=== PATIENT | female | born 1950 | race Caucasian/White ===

== ENCOUNTER 2018-01-02 16:25 | Inpatient (IN) | payer MEDICARE, BC ==
[2018-01-02] VITALS (15 sets, daily range): BP systolic 123–196; BP diastolic 59–135; PULSE 80–101; RESP 16–36; TEMP 98.6; O2SAT 95–100
[2018-01-02 16:41] LABS: AUTOMATED NEUTROPHIL # 10.3 TH/MM3 (1.8-7.7); BASOPHIL # 0.1 TH/MM3 (0-0.2); BASOPHIL % 0.5 % (0.0-2.0); EOSINOPHIL # 0.2 TH/MM3 (0-0.4); EOSINOPHIL % 1.5 % (0.0-4.0); HEMATOCRIT 42.2 % (35.0-46.0); HEMOGLOBIN 14.8 GM/DL (11.6-15.3); LYMPH % 10.9 % (9.0-44.0); LYMPHOCYTE # 1.4 TH/MM3 (1.0-4.8); MEAN CELL VOLUME 83.7 FL (80.0-100.0); MEAN CORPUSCULAR HEMOGLOBIN 29.3 PG (27.0-34.0); MEAN PLATELET VOLUME 8.8 FL (7.0-11.0); MONO % 4.8 % (0.0-8.0); MONOCYTE # 0.6 TH/MM3 (0-0.9); NEUT % 82.3 % (16.0-70.0); PLATELET COUNT 298 TH/MM3 (150-450); RED BLOOD COUNT 5.04 MIL/MM3 (4.00-5.30); RED CELL DISTRIBUTION WIDTH 13.5 % (11.6-17.2); WHITE BLOOD COUNT 12.6 TH/MM3 (4.0-11.0)
--- NOTE | 2018-01-02 16:42 | RADRPT ---
EXAM DATE: 01/02/2018 4:39 PM EDT AGE/SEX: 67 years / Female INDICATIONS: Stroke alert. Altered mental status. CLINICAL DATA: This is the patient's subsequent encounter. Patient reports that signs and symptoms h ave been present for 1 day and indicates a pain score of Nonresponsive. MEDICAL/SURGICAL HISTORY: Non-responsive. Non-responsive. RADIATION DOSE: 58.73 CTDI (mGy) COMPARISON: No prior exams available for comparison. Report was called by Dr. Tucker to Dr. Nava at 16:40 PM. TECHNIQUE: CT of the head without contrast. Using automated exposure control and adjustment of the mA and/or kV according to patient size, radiation dose was kept as low as reasonably achievable to ob tain optimal diagnostic quality images. DICOM format image data is available electronically for revi ew and comparison. FINDINGS: Cerebrum: Mild diffuse cerebral atrophy. The ventricles are normal for degree of atrophy. No evidenc e of midline shift, mass lesion, hemorrhage or acute infarction. No extraaxial fluid collections are seen. Posterior Fossa: The cerebellum and brainstem are intact. The 4th ventricle is midline. The cerebe llopontine angle is unremarkable. Extracranial: The visualized portion of the orbits is intact. Skull: Hyperostosis frontalis. The calvaria is intact. No evidence of skull fracture. CONCLUSION: 1. No acute intracranial abnormality. Electronically signed by: Douglas Donohue MD 01/02/2018 4:41 PM EDT
[2018-01-02] MEDS ORDERED: SODIUM CHLORIDE 0.9% 50 ML BAG IVF ONE (17:00)
[2018-01-02] MEDS ORDERED: ALTEPLASE BOLUS 9 MG/9 ML SYR IV ONE (17:00)
[2018-01-02] MEDS ORDERED: NURSING INFORMATION XX PRN (17:00)
[2018-01-02] MEDS ORDERED: ALTEPLASE DRIP IV ONE (17:00)
[2018-01-02 17:01] LABS: INTERNATIONAL NORMALIZED RATIO 1.1 RATIO; PROTHROMBIN TIME - PATIENT 10.7 SEC (9.8-11.6)
--- NOTE | 2018-01-02 17:16 | RADRPT ---
EXAM DATE: 01/02/2018 5:11 PM EDT AGE/SEX: 67 years / Female INDICATIONS: Stroke alert. Altered mental status. CLINICAL DATA: This is the patient's initial encounter. Patient reports that signs and symptoms have been present for 1 day and indicates a pain score of Nonresponsive. MEDICAL/SURGICAL HISTORY: Non-responsive. Non-responsive. RADIATION DOSE: 43.10 CTDI (mGy) COMPARISON: No prior exams available for comparison. TECHNIQUE: Volumetric scanning was performed using a multi-row detector CT scanner during bolus infu ja of 85 ml Visipaque 320 (iodixanol) nonionic water-soluble contrast as a cumulative dose for mul tiple exams. The data was post processed with a variety of visualization algorithms including full volume maximum intensity projection, multi-planar sliding thin slab reformation, curved planar reform ation, and surface rendering techniques. Using automated exposure control and adjustment of the mA a nd/or kV according to patient size, radiation dose was kept as low as reasonably achievable to obtain optimal diagnostic quality images. DICOM format image data is available electronically for review a nd comparison. FINDINGS: There is good visualization of the major intracranial arteries out to the second-order branch vessels . There is no evidence for aneurysm, vessel truncation or stenosis, and no evidence for vascular mal formation. Atherosclerotic calcification is present within the distal vertebral arteries. CONCLUSION: No acute intracranial vascular abnormality is identified. Electronically signed by: Kamari Castillo MD 01/02/2018 5:14 PM EDT
[2018-01-02 17:22] LABS: BICARBONATE 35.3 MEQ/L (21.0-32.0); CALCIUM 9.6 MG/DL (8.5-10.1); CREATININE 1.3 MG/DL (0.50-1.00); TROPONIN I 0.02 NG/ML (0.02-0.05)
[2018-01-02] MEDS ORDERED: IODIXANOL 320 MG/ML 10 ML VIAL (for Rad CT) IVCONTRAST ONE (17:23)
--- NOTE | 2018-01-02 17:36 | RADRPT ---
EXAM DATE: 01/02/2018 5:25 PM EDT AGE/SEX: 67 years / Female INDICATIONS: Stroke alert. Altered mental status. CLINICAL DATA: This is the patient's initial encounter. Patient reports that signs and symptoms have been present for 1 day and indicates a pain score of 0/10. MEDICAL/SURGICAL HISTORY: Non-responsive. Non-responsive. RADIATION DOSE: 43.10 CTDI (mGy) ; Combined studies COMPARISON: No prior exams available for comparison. TECHNIQUE: Volumetric scanning was performed using a multirow detector CT scanner during bolus infus ion of 85 ml Visipaque 320 (iodixanol) nonionic water-soluble contrast as a cumulative dose for mult iple exams. The data was postprocessed with a variety of visualization algorithms including full-vo lume maximum intensity projection, multiplanar sliding thin-slab reformation, curved-planar reformati on, and surface-rendering techniques. Using automated exposure control and adjustment of the mA and/ or kV according to patient size, radiation dose was kept as low as reasonably achievable to obtain op timal diagnostic quality images. DICOM format image data is available electronically for review and comparison. Elevated flow velocities and ICA/CCA ratios have been found to correlate with increased degrees of ve ssel stenosis, calculated as percentage of diameter relative to a normal segment of distal ICA/CCA. FINDINGS: Aortic Arch: There is a three-vessel origin of the great vessels from the aorta. No evidence of ost ial narrowing Right Carotid: The common carotid artery is intact. The carotid bulb has a normal configuration wit hout ulceration or narrowing. The internal carotid artery lumen is smooth without stenosis. The ext ernal carotid artery is intact. Left Carotid: The common carotid artery is intact. The carotid bulb has a normal configuration with out ulceration or narrowing. The internal carotid artery lumen is smooth without stenosis. The exte rnal carotid artery is intact. Vertebrals: The vertebral arteries have a symmetric diameter. No stenotic lesions are seen. CONCLUSION: Negative CTA Carotid. Electronically signed by: Kamari García MD 01/02/2018 5:34 PM EDT
[2018-01-02] MEDS ORDERED: LORazepam 2 MG/ML VIAL IV PUSH ONE (17:45)
--- NOTE | 2018-01-02 17:53 | PD ---
HPI Chief Complaint: Stroke Alert Time Seen by Provider: 16:29 Travel History International Travel<30 days: No Contact w/Intl Traveler<30days: No History of Present Illness HPI This is a 67-year-old female who presents to the emergency department having had onset of altered mental status at 3 PM. She was out shopping with her friend when she started to not make sense and was having trouble getting her words out and seemed to not be paying attention. She seemed very confused. Patient does not provide any history. Her friend reports that she was just discharged from [facility] yesterday. She had been admitted there for hyperglycemia. Earlier this month she was hospitalized for a soft tissue infection and sepsis and she has been on antibiotic therapy since then. Her friend does not know of her having any procedures. As far she knows she has never had a stroke before. [facility] Past Medical History Narrative Medical History inferred from drug list obtained from pharmacy includes hypertension, gout, hyperlipidemia and diabetes Medical History: Unable to Obtain Social History Tobacco Use: No (Unknown) Allergies-Medications (Allergen,Severity, Reaction): Coded Allergies: Unable to Assess (Verified Allergy, Unknown, 01/02/18) Review of Systems ROS Limitations: Speech Impaired Physical Exam Narrative GENERAL:Well appearing, no acute distress SKIN: Focused skin assessment warm and dry. HEAD: Atraumatic. Normocephalic. EYES: Pupils equal and round. No injection or drainage. ENT: Moist mucous membranes NECK: Trachea midline. CARDIOVASCULAR: Regular rate and rhythm. No murmur appreciated. RESPIRATORY: Clear to auscultation. Breath sounds equal bilaterally. GASTROINTESTINAL: Abdomen soft, non-tender, nondistended. MUSCULOSKELETAL: No obvious deformities. NEUROLOGICAL: Awake and alert. Oriented to person but not place or time. No obvious cranial nerve deficits. Wernicke's aphasia. Unable to follow commands so exam is limited. Data Data Orders Orders Cath For Specimen (01/02/18 16:29) Neuro Checks Q2HX12,Q4H (01/02/18 16:29) Nursing Bedside Swallow Assess .ONCE (01/02/18 16:29) Activity Bed Rest (01/02/18 16:29) Diet Npo (01/02/18 Dinner) Prothrombin Time / Inr (Pt) (01/02/18 16:29) Act Partial Throm Time (Ptt) (01/02/18 16:29) Complete Blood Count With Diff (01/02/18 16:29) Basic Metabolic Panel (Bmp) (01/02/18 16:29) Fibrinogen (01/02/18 16:29) Creatine Kinase (Cpk) (01/02/18 16:29) Troponin I (01/02/18 16:29) Ua Includes Microscopic (01/02/18 16:29) Drug Screen, Random Urine (01/02/18 16:29) Type And Screen (01/02/18 16:29) Ct Brain W/O Iv Contrast(Rout) (01/02/18 ) Electrocardiogram (01/02/18 ) Beta Hcg (Quant/Titer) (01/02/18 16:29) Consult Neurology (01/02/18 16:29) Blood Glucose (01/02/18 16:29) Ecg Monitoring (01/02/18 16:29) Iv Access Insert/Monitor (01/02/18 16:29) NPO (01/02/18 16:29) Oximetry (01/02/18 16:29) Resp Oxygen Nc Stroke (01/02/18 ) Cta Brain W Iv Contrast W 3d (01/02/18 16:41) Cta Neck W Iv Contrast W 3d (01/02/18 16:41) ^ Call Pharmacy (01/02/18 16:59) Nih Stroke Scale - Nihss .ONCE (01/02/18 16:59) Urinary Catheter Insert/Apply (01/02/18 16:59) Anticoagulant Alert (01/02/18 16:59) ^ Post Infusion Restrictions (01/02/18 16:59) ^ Medication Alert (01/02/18 16:59) Vital Signs (Adult) .As directed (01/02/18 16:59) Notify Dr: Blood Pressure (01/02/18 16:59) ^ Medication Alert (01/02/18 16:59) Alteplase Bolus (Activase Bolus) (01/02/18 17:00) Alteplase Drip (Activase Drip) (01/02/18 17:00) Sodium Chloride 0.9% Inj (Ns Inj) (01/02/18 17:00) Nursing Information (Misc Nursing Inform (01/02/18 17:00) Resp Oxygen Nc Stroke (01/02/18 ) Ct Brain W/O Iv Contrast(Rout) (01/03/18 ) Iodixanol 320 Inj (Rad Ct) (Visipaque 32 (01/02/18 17:23) Potassium Chlor 20 Meq Premix (Kcl 20 Me (01/02/18 17:30) Lorazepam Inj (Ativan Inj) (01/02/18 17:45) Restraints Non-Violent SANDI.Q3H (01/02/18 17:34) (Hub Use Only)Inp Phy Cons/Ref (01/02/18 ) Labs Laboratory Tests Test 01/02/18 16:21 White Blood Count 12.6 TH/MM3 Red Blood Count 5.04 MIL/MM3 Hemoglobin 14.8 GM/DL Hematocrit 42.2 % Mean Corpuscular Volume 83.7 FL Mean Corpuscular Hemoglobin 29.3 PG Mean Corpuscular Hemoglobin Concent 35.0 % Red Cell Distribution Width 13.5 % Platelet Count 298 TH/MM3 Mean Platelet Volume 8.8 FL Neutrophils (%) (Auto) 82.3 % Lymphocytes (%) (Auto) 10.9 % Monocytes (%) (Auto) 4.8 % Eosinophils (%) (Auto) 1.5 % Basophils (%) (Auto) 0.5 % Neutrophils # (Auto) 10.3 TH/MM3 Lymphocytes # (Auto) 1.4 TH/MM3 Monocytes # (Auto) 0.6 TH/MM3 Eosinophils # (Auto) 0.2 TH/MM3 Basophils # (Auto) 0.1 TH/MM3 CBC Comment AUTO DIFF Prothrombin Time 10.7 SEC Prothromb Time International Ratio 1.1 RATIO Activated Partial Thromboplast Time 21.5 SEC Blood Urea Nitrogen 23 MG/DL Creatinine 1.30 MG/DL Random Glucose 128 MG/DL Calcium Level 9.6 MG/DL Sodium Level 138 MEQ/L Potassium Level 2.6 MEQ/L Chloride Level 94 MEQ/L Carbon Dioxide Level 35.3 MEQ/L Anion Gap 9 MEQ/L Estimat Glomerular Filtration Rate 41 ML/MIN Total Creatine Kinase 29 U/L Troponin I 0.02 NG/ML Human Chorionic Gonadotropin, Quant 7 MIU/ML MDM Medical Screen Exam Complete: Yes Emergency Medical Condition: Yes Differential Diagnosis Ischemic stroke, hemorrhagic stroke, seizure, hypoglycemia Narrative Course This is a 67-year-old female who presents to the emergency department with altered mental status and confusion that started at 3 PM. She was immediately called as a stroke alert and transported to CT. NIH stroke scale was 12. I discussed with Dr. Lewis initiating TPA. In order to do this we had to obtain more medical information as the patient did not provide any history. I called the patient's pharmacy and obtained a medication list which did not detail any blood thinners. I was able to speak to the patient's sister who agreed with TPA and who did not elicit any contraindication to TPA. Patient was started on Cardene due to elevated blood pressure and TPA was initiated. She was somewhat agitated and was given 1 mg of IV Ativan. She will be admitted to the intensive care unit. Critical Care Narrative Aggregate critical care time was 50 minutes. Time to perform other separately billable procedures was not included in the critical care time. My time did not include minutes spent treating any other patients simultaneously or on activities that did not directly contribute to the patient's treatment. The services I provided to this patient were to treat and/or prevent clinically significant deterioration that could result in: Disability, I provided critical care services requiring my management, as noted below: Chart data review, documentation time, medication orders and management, vital sign assessments/reviewing monitor data, ordering and reviewing lab tests, ordering and interpreting/reviewing x-rays and diagnostic studies, care of the patient and discussion of the patient with the admitting physicians. Stroke Alert NIHSS NIH Stroke Scale Result: 12 NIHSS Time Completed: 16:35 Physician Communication Physician Communication Discussed with Dr. Lewis Diagnosis Diagnosis: Primary Impression: Ischemic stroke Admitting Physician Requests: Florinda Shine MD Jan 02, 2018 17:53
[2018-01-02] MEDS ORDERED: niCARdipine INJ 25 MG in SODIUM CHLOR 0.9% 250 ML INJ 250 ML IV ONE (18:45)
--- NOTE | 2018-01-02 18:56 | MB ---
cc: Chinmay Lewis MD, PhD DATE: 01/02/2018 REASON FOR CONSULTATION: Stroke alert. HISTORY OF PRESENT ILLNESS: This is a 67-year-old woman who apparently was normal until 3:00 p.m. when she suddenly developed difficulty with speech and was brought to the ER as a stroke alert, which was called in the field. Upon evaluation of the patient, she had what appeared to be aphasia, both receptive and expressive but no focal deficits. NEUROLOGIC EXAMINATION: VITAL SIGNS: Blood pressure is 185/100. HIGHER CORTICAL FUNCTION: The patient is alert. She has no spontaneous speech output. She does not follow commands. Cannot repeat simple phrases. She does orient to voice. CRANIAL NERVES: Intact except a questionable right facial droop. Pupils are equal and reactive. The extraocular movements are normal. MOTOR EXAM: She has no focal deficit with 5/5 strength of all groups in both upper and lower extremities. IMAGING STUDIES: CT of the brain is normal. CT angiogram of the brain shows no evidence of any large vessel occlusion. CTA of the neck is pending. LABORATORY DATA: White count 12,600; hemoglobin 14.8; hematocrit 42.2%; platelet count 298,000. PT 10.7, INR 1.1, aPTT is ____. Sodium is pending. Electrolytes pending. IMPRESSION: Acute stroke with probably mainly Wernicke's aphasia. RECOMMENDATIONS: The patient is a candidate for IV TPA. We will first start on Cardene for blood pressure control per protocol and would recommend administration of IV TPA. She is not a candidate for intervention given the negative CT angiogram findings. There was some delay in obtaining history regarding the patient, particularly with regard to any anticoagulant therapy. Therefore, there was a delay in the door to needle time because we needed to obtain adequate history. We did obtain that history and the patient does not have a history of being on any type of anticoagulant medication and there is no contraindication for TPA. Would recommend transferring the patient to the main [facility] for post-TPA monitoring. We will obtain a CTA of the brain 24 hours post-TPA. Also, MRI of the brain. I will followup on the CTA of the neck. Monitor cardiac telemetry, rule out fibrillation. We will check an echocardiogram, as well as a lipid panel. There will be no anticoagulants, no antiplatelet medication for 24 hours post-TPA. Thank you for asking me to see this patient. Chinmay Lewis MD, PhD MATILDA/IRAIS , 05:21 PM , 06:55 PM
--- NOTE | 2018-01-02 20:43 | HHI.HP ---
HPI Service Critical Care Medicine Primary Care Physician No Primary Care Physician Admission Diagnosis ischemic stroke Diagnosis: (1) Ischemic stroke Travel History International Travel<30 Days: No Contact w/Intl Traveler <30 Da: No History of Present Illness 67-year-old female with PMH of HTN, DM, HLD, gout, obesity who reportedly had acute onset of Wernicke's aphasia and confusion at 3 PM 01/02/18. She arrived at [facility] Emergency Department. CT brain was negative. CTA brain and carotid was also unremarkable. She was evaluated by Dr. Lewis with neurology and TPA was recommended and administered at 17:39. She was started on nicardipine drip; BP was 196/92 after administration of TPA. She was given Ativan 1 mg IV in the emergency department due to agitation. Reportedly patient was discharged from [facility] yesterday after admission for hyperglycemia. She also had been treated for soft tissue infection and had been on antibiotic therapy. Patient is unable to confirm this medical history; as aphasia persists. Apparently her best friend was able to provide some of this history to the emergency department physician and reportedly this friend is on the way to [facility] now. Review of Systems ROS Limitations: Clinical Condition Past Family Social History Allergies: Coded Allergies: Unable to Assess (Verified Allergy, Unknown, 01/02/18) Past Medical History Hypertension Hyperlipidemia Diabetes Obesity Gout Past Surgical History Patient denies any past surgical history Reported Medications I do not have a current medication list. Medication reconciliation was not completed in the emergency department. Patient is unable to provide currently. Will attempt to obtain from her friend Family History Patient denies significant family medical history Social History Patient states her is She is a lifetime non-smoker Drinks alcohol occasionally Has no children States she has no family to contact but her best friend is reportedly [place] her [place] [facility] [place] Physical Exam Vital Signs Vital Signs Date Time Temp Pulse Resp B/P (MAP) Pulse Ox O2 Delivery O2 Flow Rate FiO2 01/02/18 18:15 82 16 123/63 (83) 95 Room Air 01/02/18 18:00 80 20 144/59 (87) 96 Room Air 01/02/18 17:45 80 20 133/69 (90) 96 Room Air 01/02/18 17:30 80 20 159/73 (101) 97 Room Air 01/02/18 17:00 80 20 180/135 (150) 95 Room Air Physical Exam GENERAL: Well-nourished, well-developed patient who is restless in bed, pulling at nasal cannula and clothing. SKIN: Warm and dry, no rash, well perfused. HEAD: Atraumatic. Normocephalic. EYES: Pupils equal and round 2 mm and reactive bilaterally. No scleral icterus. No injection or drainage. ENT: No nasal bleeding or discharge. Mucous membranes pink and moist. NECK: Trachea midline. No JVD. No meningismus CARDIOVASCULAR: Regular rate and rhythm, sinus rhythm on the monitor. No murmurs rubs or gallops. RESPIRATORY: Breathing comfortably on nasal cannula. Clear to auscultation bilaterally. GASTROINTESTINAL: Abdomen soft, non-tender, nondistended. Bowel sounds present. MUSCULOSKELETAL: Extremities without clubbing, cyanosis, or edema. NEUROLOGICAL: Awake and alert. Repeats questions back to examiner, answers some questions but uses some words inappropriately, some nonsense words. Does not seem to understand all commands and thus is intermittently cooperative. No obvious cranial nerve deficits, no facial droop, normal tongue protrusion. No pronator drift, though somewhat limited as she does not cooperate fully. She moves bilateral upper extremities spontaneously and has normal tibco developer strength. She did not completely follow commands with entire motor exam of upper extremities, though triceps are 5/5. Strength appears 5 out of 5 bilateral lower extremities with no abnormal response to Babinski. Laboratory Laboratory Tests Test 01/02/18 16:21 White Blood Count 12.6 Red Blood Count 5.04 Hemoglobin 14.8 Hematocrit 42.2 Mean Corpuscular Volume 83.7 Mean Corpuscular Hemoglobin 29.3 Mean Corpuscular Hemoglobin Concent 35.0 Red Cell Distribution Width 13.5 Platelet Count 298 Mean Platelet Volume 8.8 Neutrophils (%) (Auto) 82.3 Lymphocytes (%) (Auto) 10.9 Monocytes (%) (Auto) 4.8 Eosinophils (%) (Auto) 1.5 Basophils (%) (Auto) 0.5 Neutrophils # (Auto) 10.3 Lymphocytes # (Auto) 1.4 Monocytes # (Auto) 0.6 Eosinophils # (Auto) 0.2 Basophils # (Auto) 0.1 CBC Comment AUTO DIFF Differential Comment AUTO DIFF CONFIRMED Prothrombin Time 10.7 Prothromb Time International Ratio 1.1 Activated Partial Thromboplast Time 21.5 Fibrinogen 458 Blood Urea Nitrogen 23 Creatinine 1.30 Random Glucose 128 Calcium Level 9.6 Sodium Level 138 Potassium Level 2.6 Chloride Level 94 Carbon Dioxide Level 35.3 Anion Gap 9 Estimat Glomerular Filtration Rate 41 Total Creatine Kinase 29 Troponin I 0.02 Human Chorionic Gonadotropin, Quant 7 Result Diagram: 01/02/18 1621 01/02/18 1621 Caprini VTE Risk Assessment Caprini VTE Risk Assessment: Mod/High Risk (score >= 2) VTE Pharm Contraindication: Patient received TPA and anticoagulation is contraindicated for 24 hours. Caprini Risk Assessment Model Point Value = 1 Point Value = 2 Point Value = 3 Point Value = 5 Age 41-60 Minor surgery BMI > 25 kg/m2 Swollen legs Varicose veins or History of unexplained or recurrent spontaneous Oral contraceptives or hormone replacement Sepsis (< 1 month) Serious lung disease, including pneumonia (< 1 month) Abnormal pulmonary function Acute myocardial infarction Congestive heart failure (< 1 month) History of inflammatory bowel disease Medical patient at bed rest Age 61-74 Arthroscopic surgery Major open surgery (> 45 min) Laparoscopic surgery (> 45 min) Malignancy Confined to bed (> 72 hours) Immobilizing plaster cast Central venous access Age >= 75 History of VTE Family history of VTE Factor V Leiden Prothrombin [id number] Lupus anticoagulant Anticardiolipin antibodies Elevated serum homocysteine Heparin-induced thrombocytopenia Other congenital or acquired thrombophilia Stroke (< 1 month) Elective arthroplasty Hip, pelvis, or leg fracture Acute spinal cord injury (< 1 month) Prophylaxis Regimen Total Risk Factor Score Risk Level Prophylaxis Regimen 0-1 Low Early ambulation 2 Moderate Order ONE of the following: *Sequential Compression Device (SCD) *Heparin 5000 units SQ BID 3-4 Higher Order ONE of the following medications: *Heparin 5000 units SQ TID *Enoxaparin/Lovenox 40 mg SQ daily (WT < 150 kg, CrCl > 30 mL/min) *Enoxaparin/Lovenox 30 mg SQ daily (WT < 150 kg, CrCl > 10-29 mL/min) *Enoxaparin/Lovenox 30 mg SQ BID (WT < 150 kg, CrCl > 30 mL/min) AND/OR *Sequential Compression Device (SCD) 5 or more Highest Order ONE of the following medications: *Heparin 5000 units SQ TID (Preferred with Epidurals) *Enoxaparin/Lovenox 40 mg SQ daily (WT < 150 kg, CrCl > 30 mL/min) *Enoxaparin/Lovenox 30 mg SQ daily (WT < 150 kg, CrCl > 10-29 mL/min) *Enoxaparin/Lovenox 30 mg SQ BID (WT < 150 kg, CrCl > 30 mL/min) AND *Sequential Compression Device (SCD) Assessment and Plan Problem List: (1) HTN (hypertension) ICD Code: I10 - Essential (primary) hypertension Status: Chronic (2) Obesity ICD Code: E66.9 - Obesity, unspecified Status: Chronic (3) Ischemic stroke ICD Code: I63.9 - Cerebral infarction, unspecified Status: Acute (4) Diabetes ICD Code: E11.9 - Type 2 diabetes mellitus without complications Status: Chronic (5) HLD (hyperlipidemia) ICD Code: E78.5 - Hyperlipidemia, unspecified Status: Chronic (6) Hypokalemia ICD Code: E87.6 - Hypokalemia Status: Acute (7) CKD (chronic kidney disease) stage 3, GFR 30-59 ml/min ICD Code: N18.3 - Chronic kidney disease, stage 3 (moderate) Assessment and Plan NEURO: Acute ischemic stroke Wernicke's aphasia Received TPA 12/27 started 17:39. Hold antiplatelets or anticoagulant therapy for 24 hours post TPA. Follow-up CT brain in 24 hours. Neurochecks and blood pressure management per TPA protocol CTA brain and carotids were normal. Follow-up lipids studies and echo. Continue telemetry monitoring. RESP: Nasal cannula wean as tolerated Check chest x-ray CV: Hypertension Hyperlipidemia Has been started on Cardene drip which will titrate to maintain systolic blood pressure 165-180, diastolic blood pressure greater than or equal to 100. Follow-up lipid studies. Will need statin, may already be on one. We will follow-up when able to confirm medication list GI: Obesity N.p.o. Speech therapy to evaluate for aphasia and swallow. FEN/RENAL: Hypokalemia Renal insufficiency, ?CKD stage III (baseline creatinine unknown) Monitor intake and output. Monitor electrolytes and replace as indicated per ICU electrolyte replacement protocol ID: Leukocytosis Follow-up chest x-ray HEME: No acute hematologic issues. Received TPA ENDO: Diabetes mellitus Monitor bedside glucose every 6 hours and administer low-dose insulin sliding scale as indicated MSK Reportedly history of gout. Follow-up med rec PROPH: SCDs for DVT prophylaxis. Pharmacologic DVT prophylaxis is contraindicated for 24 hours post TPA due to risk of hemorrhage. Famotidine IV for stress ulcer prophylaxis. ACCESS: Peripheral IV providing adequate access at this time. Avoid IV sticks due to TPA administration Level 3 H&P Marysol Jasso MD Jan 02, 2018 20:43
[2018-01-02] MEDS ORDERED: GLUCAGON 1 MG/ML VIAL OTHER PRN (21:15)
[2018-01-02] MEDS ORDERED: DEXTROSE 50% IN WATER 50 ML VIAL(D50) IV PUSH PRN (21:15)
[2018-01-02] MEDS: INSULIN ASPART SUPPLEMENTAL SCALE SQ SCH (21:15)
[2018-01-02] MEDS: POTASSIUM CHLOR 20 MEQ PREMIX 100 ML IV SCH ×2 (21:18→23:43)
[2018-01-02] MEDS: SODIUM CHLOR 0.9% 1000 ML INJ 1,000 ML IV SCH (21:57)
[2018-01-02] MEDS ORDERED: POTASSIUM CHLOR 20 MEQ PREMIX 100 ML IV PRN ×2 (22:00)
[2018-01-02] MEDS ORDERED: POTASSIUM CHLORIDE 25 MEQ EFFERVESCENT TAB PO PRN (22:00)
[2018-01-02] MEDS ORDERED: SODIUM CHLORIDE 0.9% FLUSH 10 ML FLUSH IV FLUSH PRN (22:00)
[2018-01-02] MEDS ORDERED: POTASSIUM PHOSPHATE MONOBASIC 500 MG TAB PO PRN (22:00)
[2018-01-02] MEDS ORDERED: CHLORHEXIDINE GLUCONATE 2 % 1 PACK (2 CLOTHS) TOP PRN (22:00)
[2018-01-02] MEDS ORDERED: SODIUM PHOSPHATE INJ 30 MMOL in SODIUM CHLOR 0.9% 250 ML INJ 240 ML IV PRN (22:00)
[2018-01-02] MEDS ORDERED: LACTULOSE SYRUP 20 GM/30 ML CUP PO PRN (22:00)
[2018-01-02] MEDS ORDERED: MAGNESIUM SULFATE INJ 2 GM in SODIUM CHLORIDE 0.9% INJ 96 ML IV PRN (22:00)
[2018-01-02] MEDS ORDERED: MAGNESIUM HYDROXIDE SUSP 30 ML CUP PO PRN (22:00)
[2018-01-02] MEDS ORDERED: MAGNESIUM SULFATE INJ 4 GM in SODIUM CHLORIDE 0.9% INJ 92 ML IV PRN (22:00)
[2018-01-02] MEDS ORDERED: niCARdipine INJ 25 MG in SODIUM CHLOR 0.9% 250 ML INJ 250 ML IV PRN (22:00)
[2018-01-02] MEDS ORDERED: MAGNESIUM OXIDE 400 MG TAB PO PRN (22:00)
[2018-01-02] MEDS ORDERED: POTASSIUM CHLOR 40 MEQ PREMIX 100 ML IV PRN ×2 (22:00)
[2018-01-02] MEDS ORDERED: BISACODYL 10 MG SUPP RECTAL PRN (22:00)
[2018-01-02] MEDS ORDERED: POTASSIUM PHOSPHATE MONOBASIC 500 MG TAB PO/TUBE PRN (22:00)
[2018-01-02] MEDS ORDERED: POTASSIUM PHOSPHATE INJ 30 MMOL in SODIUM CHLOR 0.9% 250 ML INJ 250 ML IV PRN (22:00)
[2018-01-02] MEDS ORDERED: NURSING INFORMATION XX SCH (22:00)
[2018-01-02] MEDS ORDERED: SENNOSIDES 8.6 MG TAB PO PRN (22:00)
[2018-01-02] MEDS: RESP: ALBUTEROL 2.5 MG/3 ML NEB (SCH) INH (22:37)
--- NOTE | 2018-01-02 22:49 | RADRPT ---
EXAM DATE: 01/02/2018 10:44 PM EDT AGE/SEX: 67 years / Female INDICATIONS: Hypertension. CLINICAL DATA: This is the patient's subsequent encounter. Patient reports that signs and symptoms h ave been present for 3 days and indicates a pain score of Nonresponsive. MEDICAL/SURGICAL HISTORY: Non-responsive. Non-responsive. COMPARISON: No prior exams available for comparison. FINDINGS: A single AP view of the chest demonstrates the lungs to be symmetrically aerated without evidence of mass, infiltrate or effusion. The cardiomediastinal contours are unremarkable. Osseous structures a re intact. CONCLUSION: No acute cardiopulmonary findings. Electronically signed by: Asael Ochoa MD 01/02/2018 10:48 PM EDT
[2018-01-03] VITALS (15 sets, daily range): BP systolic 142–189; BP diastolic 59–89; PULSE 77–97; RESP 9–16; TEMP 98.2–98.8; O2SAT 94–100
[2018-01-03] MEDS: INSULIN ASPART SUPPLEMENTAL SCALE SQ SCH ×4 (03:15→20:54)
[2018-01-03] MEDS: CHLORHEXIDINE GLUCONATE 2 % 1 PACK (2 CLOTHS) TOP SCH ×2 (04:00→22:00)
[2018-01-03] MEDS: RESP: ALBUTEROL 2.5 MG/3 ML NEB (SCH) INH ×4 (05:35→20:38)
--- NOTE | 2018-01-03 08:02 | HHI.CCPN ---
Subjective Remarks/Hospital Course 67-year-old female with PMH of HTN, DM, HLD, gout, obesity who reportedly had acute onset of Wernicke's aphasia and confusion at 3 PM 01/02/18. She arrived at [facility] Emergency Department. CT brain was negative. CTA brain and carotid was also unremarkable. She was evaluated by Dr. Lewis with neurology and TPA was recommended and administered at 17:39. She was started on nicardipine drip; BP was 196/92 after administration of TPA. She was given Ativan 1 mg IV in the emergency department due to agitation. Reportedly patient was discharged from [facility] yesterday after admission for hyperglycemia. She also had been treated for soft tissue infection and had been on antibiotic therapy. Patient is unable to confirm this medical history; as aphasia persists. Apparently her best friend was able to provide some of this history to the emergency department physician and reportedly this friend is on the way to [facility] now. SUBJ 01/03: Alert awake cooperative. Following commands. Still has some expressive aphasia, but overall improving. Repeat CT head and repeat labs pending. Lipid profile pending Objective Vital Signs Date Time Temp Pulse Resp B/P (MAP) Pulse Ox O2 Delivery O2 Flow Rate FiO2 01/03/18 07:00 94 Room Air 01/03/18 07:00 88 01/03/18 04:00 98.2 16 152/71 (98) 01/02/18 22:40 21 01/02/18 20:18 2.00 Intake and Output 01/03/18 01/03/18 01/04/18 08:00 16:00 00:00 Intake Total 611 ml Balance 611 ml Result Diagram: 01/02/18 1621 01/02/18 1621 Objective Remarks GENERAL: Well-nourished, well-developed patient who is lying comfortably cooperative SKIN: Warm and dry, no rash, well perfused. HEAD: Atraumatic. Normocephalic. EYES: Pupils equal and round 2 mm and reactive bilaterally. No scleral icterus. No injection or drainage. ENT: No nasal bleeding or discharge. Mucous membranes pink and moist. NECK: Trachea midline. No JVD. No meningismus CARDIOVASCULAR: Regular rate and rhythm, sinus rhythm on the monitor. No murmurs rubs or gallops. RESPIRATORY: Breathing comfortably on nasal cannula. Clear to auscultation bilaterally. No wheezes or crackles GASTROINTESTINAL: Abdomen soft, non-tender, nondistended. Bowel sounds present. MUSCULOSKELETAL: Extremities without clubbing, cyanosis, or edema. NEUROLOGICAL: Awake and alert. Following commands, persistent minimal expressive aphasia with some inappropriate words. No obvious cranial nerve deficits, no facial droop, normal tongue protrusion. No pronator drift, moves bilateral upper extremities spontaneously and has normal title attorney strength. Strength appears 5 out of 5 bilateral upper and lower extremities A/P Assessment and Plan NEURO: Acute ischemic stroke Wernicke's aphasia Received TPA 12/27 started 17:39. Hold antiplatelets or anticoagulant therapy for 24 hours post TPA. Follow-up CT brain in 24 hours. Neurochecks and blood pressure management per TPA protocol CTA brain and carotids were normal. Follow-up lipids studies and echo. Continue telemetry monitoring. Start Lipitor 40 mg nightly RESP: Nasal cannula wean as tolerated Normal chest x-ray CV: Hypertension Hyperlipidemia Has been started on Cardene drip which will titrate to maintain systolic blood pressure 165-180, diastolic blood pressure greater than or equal to 100. Now weaned off Follow-up lipid studies. Start Lipitor 40 mg nightly GI: Obesity N.p.o. Speech therapy to evaluate for aphasia and swallow. FEN/RENAL: Hypokalemia Renal insufficiency, ?CKD stage III (baseline creatinine unknown) Monitor intake and output. Monitor electrolytes and replace as indicated per ICU electrolyte replacement protocol ID: Leukocytosis Follow-up chest x-ray, normal exam HEME: No acute hematologic issues. Received TPA ENDO: Diabetes mellitus Monitor bedside glucose every 6 hours and administer low-dose insulin sliding scale as indicated MSK Reportedly history of gout. Follow-up med rec PROPH: SCDs for DVT prophylaxis. Pharmacologic DVT prophylaxis is contraindicated for 24 hours post TPA due to risk of hemorrhage. Famotidine IV for stress ulcer prophylaxis. ACCESS: Peripheral IV providing adequate access at this time. Avoid IV sticks due to TPA administration Level 2 Consult hospitalist to assume care in a.m. 01/04/2018 Further stroke workup for Dr. Lewis PT/OT/Speech Adelaida Benites MD Jan 03, 2018 08:02
--- NOTE | 2018-01-03 08:15 | HHI.PR ---
Review/Management Diagnosis Stroke alert with aphasia, s/p iv TPA now with resolution of neurologic sx. Plan CT brain 24 hours post TPA. No antiplatelet or anticoagulants for 24 hr post TPA. continue close neurochecks and Vital signs review echocardiogram. cardiac telemetry to r/o afib. MRI brain Diagnosis/Plan: Subjective Subjective Comments No acute events reported No headache Pt feels her speech is now back to normal She denies focal weakness or numbness, vertigo or double vision Active Medications Current Medications Medications (Trade) Dose Ordered Sig/Radha Route Start Time Stop Time Status Last Admin ([facility] Information) No Heparin, Warfarin, Aspir... UNSCH PRN XX 01/02/18 17:00 01/03/18 16:59 (D50w (Vial) Inj) 50 ml UNSCH PRN IV PUSH 01/02/18 21:15 01/03/18 04:02 (Glucagon Inj) 1 mg UNSCH PRN OTHER 01/02/18 21:15 (NovoLOG SUPPLEMENTAL SCALE) 1 Q6H SQ 01/02/18 21:15 Nicardipine HCl 25 mg/Sodium Chloride 260 ml @ 52 mls/hr TITRATE PRN IV 01/02/18 22:00 01/02/18 22:47 Potassium Chloride 100 ml @ 50 mls/hr Q2H PRN IV 01/02/18 22:00 Potassium Chloride 100 ml @ 50 mls/hr Q2H PRN IV 01/02/18 22:00 (K-Lyte Cl Eff) 50 meq UNSCH PRN PO 01/02/18 22:00 Potassium Chloride 100 ml @ 25 mls/hr UNSCH PRN IV 01/02/18 22:00 Potassium Chloride 100 ml @ 50 mls/hr Q2H PRN IV 01/02/18 22:00 Magnesium Sulfate 4 gm/Sodium Chloride 100 ml @ 50 mls/hr UNSCH PRN IV 01/02/18 22:00 (Mag-Ox) 800 mg UNSCH PRN PO 01/02/18 22:00 Magnesium Sulfate 2 gm/Sodium Chloride 100 ml @ 50 mls/hr UNSCH PRN IV 01/02/18 22:00 (K-Phos) 2,000 mg Q4H PRN PO 01/02/18 22:00 Sodium Phosphate 30 mmol/Sodium Chloride 250 ml @ 42 mls/hr UNSCH PRN IV 01/02/18 22:00 (K-Phos) 2,000 mg UNSCH PRN PO/TUBE 01/02/18 22:00 Potassium Phosphate 30 mmol/ Sodium Chloride 260 ml @ 42 mls/hr UNSCH PRN IV 01/02/18 22:00 Sodium Chloride 1,000 ml @ 60 mls/hr [id number] IV 01/02/18 21:57 01/02/18 21:57 (NS Flush) 2 ml UNSCH PRN IV FLUSH 01/02/18 22:00 (NS Flush) 2 ml BID IV FLUSH 01/03/18 09:00 (Pepcid Inj) 20 mg Q12HR IV PUSH 01/03/18 09:00 (Albuterol Neb) 2.5 mg Q6HR NEB INH 01/02/18 22:00 01/03/18 05:35 ([facility] Information) 1 Q361D XX 01/02/18 22:00 01/02/18 22:00 (Chlorhexidine 2% Cloth) 3 pack Taper DAILY@04 TOP 01/03/18 04:00 12/30/18 03:59 01/03/18 04:00 (Chlorhexidine 2% Cloth) 3 pack UNSCH PRN TOP 01/02/18 22:00 (Shea-Colace) 1 tab BID PO 01/03/18 09:00 (Milk Of Magnesia Liq) 30 ml Q12H PRN PO 01/02/18 22:00 (Senokot) 17.2 mg Q12H PRN PO 01/02/18 22:00 (Dulcolax Supp) 10 mg DAILY PRN RECTAL 01/02/18 22:00 (Lactulose Liq) 30 ml DAILY PRN PO 01/02/18 22:00 (Lipitor) 40 mg HS PO 01/03/18 21:00 UNV Allergies Allergies Coded Allergies Unable to Assess (Verified Allergy, Unknown, 01/02/18) Exam I&O / VS Vital Signs Date Time Temp Pulse Resp B/P (MAP) Pulse Ox O2 Delivery O2 Flow Rate FiO2 01/03/18 07:00 94 Room Air 01/03/18 07:00 88 01/03/18 06:00 87 01/03/18 04:00 84 01/03/18 04:00 98.2 84 16 152/71 (98) 94 01/03/18 02:00 90 01/03/18 00:00 98.8 97 9 142/67 (92) 96 01/03/18 00:00 97 01/02/18 23:00 101 01/02/18 22:47 100 164/74 01/02/18 22:40 95 21 01/02/18 22:00 98.6 100 36 162/74 (103) 99 01/02/18 22:00 100 01/02/18 20:18 100 Nasal Cannula 2.00 01/02/18 19:30 85 16 147/70 (95) 96 Room Air 01/02/18 19:15 88 16 167/90 (115) 95 Room Air 01/02/18 19:10 01/02/18 19:00 83 20 196/92 (126) 97 Room Air 01/02/18 19:00 83 196/92 01/02/18 18:30 85 20 137/83 (101) 96 Room Air 01/02/18 18:20 84 123/63 01/02/18 18:15 82 16 123/63 (83) 95 Room Air 01/02/18 18:00 80 20 144/59 (87) 96 Room Air 01/02/18 18:00 80 144/59 01/02/18 17:45 80 20 133/69 (90) 96 Room Air 01/02/18 17:30 80 20 159/73 (101) 97 Room Air 01/02/18 17:10 80 180/135 01/02/18 17:00 80 20 180/135 (150) 95 Room Air 01/02/18 16:40 95 Room Air 01/02/18 16:30 80 20 180/135 (150) 96 Exam Comments alert, oriented times 3. Speech this am is normal--normal fluency, able to repeat phrases well. Follows all commands with normal comprehension. Makes no paraphasic errors CN--pupils 2 mm symmetric and reactive. Visual mcdonough normal to confrontation. EOM intact with no nystagmus. Normal facial strength and sensation. Tongue midline. Palette elevates symmetric MOTOR-- 5/5 all major muscle groups BUE and BLE. No drift normal fine motor skills Sensation--normal Objective Radiology Results CTA neck is normal with no significant carotid stenosis Micro and Labs Laboratory Tests Test 01/02/18 16:21 01/03/18 00:20 01/03/18 06:00 White Blood Count 12.6 Red Blood Count 5.04 Hemoglobin 14.8 Hematocrit 42.2 Mean Corpuscular Volume 83.7 Mean Corpuscular Hemoglobin 29.3 Mean Corpuscular Hemoglobin Concent 35.0 Red Cell Distribution Width 13.5 Platelet Count 298 Mean Platelet Volume 8.8 Neutrophils (%) (Auto) 82.3 Lymphocytes (%) (Auto) 10.9 Monocytes (%) (Auto) 4.8 Eosinophils (%) (Auto) 1.5 Basophils (%) (Auto) 0.5 Neutrophils # (Auto) 10.3 Lymphocytes # (Auto) 1.4 Monocytes # (Auto) 0.6 Eosinophils # (Auto) 0.2 Basophils # (Auto) 0.1 CBC Comment AUTO DIFF Differential Comment AUTO DIFF CONFIRMED Prothrombin Time 10.7 Prothromb Time International Ratio 1.1 Activated Partial Thromboplast Time 21.5 Fibrinogen 458 Blood Urea Nitrogen 23 Creatinine 1.30 Random Glucose 128 Calcium Level 9.6 Sodium Level 138 Potassium Level 2.6 Chloride Level 94 Carbon Dioxide Level 35.3 Anion Gap 9 Estimat Glomerular Filtration Rate 41 Total Creatine Kinase 29 Troponin I 0.02 Human Chorionic Gonadotropin, Quant 7 Nasal Screen MRSA (PCR) MRSA NOT DETECTED Chinmay Lewis MD PhD Jan 03, 2018 08:15
[2018-01-03] MEDS: SODIUM CHLORIDE 0.9% FLUSH 10 ML FLUSH IV FLUSH SCH ×2 (08:16→20:19)
[2018-01-03] MEDS: DOCUSATE SODIUM 50 MG/SENNA 8.6 MG TAB PO SCH ×2 (08:16→20:18)
[2018-01-03] MEDS: FAMOTIDINE 20 MG/2 ML VIAL IV PUSH SCH ×2 (09:57→20:18)
[2018-01-03] MEDS: SODIUM CHLOR 0.9% 1000 ML INJ 1,000 ML IV SCH (14:37)
--- NOTE | 2018-01-03 17:44 | RADRPT ---
EXAM DATE: 01/03/2018 5:29 PM EDT AGE/SEX: 67 years / Female INDICATIONS: Post TPA, stroke alert today. CLINICAL DATA: This is the patient's initial encounter. Patient reports that signs and symptoms have been present for 1 day and indicates a pain score of Nonresponsive. MEDICAL/SURGICAL HISTORY: Non-responsive. Non-responsive. RADIATION DOSE: 41.84 CTDI (mGy) COMPARISON: [facility], CT BRAIN W/O CONTRAST, 01/02/2018. . TECHNIQUE: CT of the head without contrast. Using automated exposure control and adjustment of the mA and/or kV according to patient size, radiation dose was kept as low as reasonably achievable to ob tain optimal diagnostic quality images. FINDINGS: Cerebrum: The ventricles are normal for age. No evidence of midline shift, mass lesion, hemorrhage or acute infarction. No extraaxial fluid collections are seen. Posterior Fossa: The cerebellum and brainstem are intact. The 4th ventricle is midline. The cerebe llopontine angle is unremarkable. Extracranial: The visualized portion of the orbits is intact. Skull: The calvaria is intact. No evidence of skull fracture. CONCLUSION: 1. Negative for an acute process. Electronically signed by: Fuentes Ochoa MD 01/03/2018 5:42 PM EDT
--- NOTE | 2018-01-03 19:16 | ECHRPT ---
Indication: CVA/TIA CONCLUSIONS Normal left ventricular size. EF@60% Mild concentric left ventricular hypertrophy. Trace mitral valve regurgitation. Trace aortic valve regurgitation. There is trace tricuspid valve regurgitation. A prominent epicardial fat pad is present vs small anterior pericardial effusion. BP: / HR: Rhythm: Sinus MEASUREMENTS (Male / Female) Normal Values Technical Quality:Fair 2D ECHO LV Diastolic Diameter PLAX 4.7 cm 4.2 - 5.9 / 3.9 - 5.3 cm LV Systolic Diameter PLAX 3.3 cm IVS Diastolic Thickness 1.4 cm 0.6 - 1.0 / 0.6 - 0.9 cm LVPW Diastolic Thickness 1.4 cm 0.6 - 1.0 / 0.6 - 0.9 cm LV Relative Wall Thickness 0.6 RV Internal Dim ED PLAX 2.6 cm LVOT Diameter 1.8 cm Aortic Root Diameter 2.7 cm LA Systolic Diameter LX 3.1 cm 3.0 - 4.0 / 2.7 - 3.8 cm M-MODE AV Cusp Separation MM 1.9 cm DOPPLER AV Peak Velocity 168.0 cm/s AV Peak Gradient 11.3 mmHg AV Mean Gradient 7.0 mmHg AV Velocity Time Integral 31.5 cm AI Peak Velocity 472.0 cm/s AI Peak Gradient 89.1 mmHg AI Pressure Half Time 520.0 ms LVOT Peak Velocity 90.2 cm/s LVOT Peak Gradient 3.3 mmHg LVOT Velocity Time Integral 16.5 cm AV Area Cont Eq vti 1.3 cm AV Area Cont Eq pk 1.4 cm Mitral E Point Velocity 63.7 cm/s Mitral A Point Velocity 82.9 cm/s Mitral E to A Ratio 0.8 LV E' Lateral Velocity 8.8 cm/s Mitral E to LV E' Lateral Ratio 7.3 LV E' Septal Velocity 5.5 cm/s Mitral E to LV E' Septal Ratio 11.7 TR Peak Velocity 183.0 cm/s TR Peak Gradient 13.4 mmHg Right Atrial Pressure 10.0 mmHg Pulmonary Artery Systolic Pressu 23.4 mmHg Right Ventricular Systolic Press 23.4 mmHg PV Peak Velocity 72.9 cm/s PV Peak Gradient 2.1 mmHg FINDINGS LEFT VENTRICLE Normal left ventricular size. Mild concentric left ventricular hypertrophy. The left ventricular systolic function is normal with an estimated ejection fraction in the range of 60-65%. RIGHT VENTRICLE Normal right ventricular size and systolic function. LEFT ATRIUM The left atrial size is normal. RIGHT ATRIUM The right atrial size is normal. ATRIAL SEPTUM No atrial level shunt is demonstrated by color flow Doppler interrogation. AORTA The aortic root and proximal ascending aorta are normal in size on limited imaging. MITRAL VALVE Trace mitral valve regurgitation. AORTIC VALVE Trace aortic valve regurgitation. TRICUSPID VALVE There is trace tricuspid valve regurgitation. PULMONARY VALVE No pulmonary valve regurgitation or stenosis. VESSELS The inferior vena cava is normal in size. PERICARDIUM A prominent epicardial fat pad is present vs small anterior pericardial effusion. Arnoldo Baltazar MD, FACC, FSCAI (Electronically Signed) Final Date:03 January 2018 19:15
[2018-01-03] MEDS: FLUCONAZOLE 100 MG TAB PO SCH (20:18)
[2018-01-03] MEDS: ATORVASTATIN 40 MG TAB PO SCH (20:18)
--- NOTE | 2018-01-03 20:42 | EKG ---
Date Performed: 01/02/2018 Time Performed: 22:21:23 PTAGE: 67 years EKG: Sinus rhythm WITH FIRST DEGREE AV BLOCK INFERIOR MYOCARDIAL INFARCTION , PROBABLY OLD ANTEROLATERAL MYOCARDIAL IN FARCTION , PROBABLY OLD ABNORMAL ECG Compared to PREVIOUS TRACING , anterolateral infarction present DOCTOR: Joel Barnes Interpretating Date/Time 01/03/2018 20:42:31
--- NOTE | 2018-01-03 21:09 | EKG ---
Date Performed: 01/02/2018 Time Performed: 17:05:07 PTAGE: 67 years EKG: Sinus rhythm WITH FIRST DEGREE AV BLOCK INFERIOR MYOCARDIAL INFARCTION ABNORMAL ECG NO PREVIOUS TRACING DOCTOR: Joel Barnes Interpretating Date/Time 01/03/2018 21:07:07
[2018-01-03 21:20] LABS: ALBUMIN 3.1 GM/DL (3.4-5.0); DIRECT BILIRUBIN ADULT 0.2 MG/DL (0.0-0.2)
[2018-01-03 21:21] LABS: ALBUMIN 3.1 GM/DL (3.4-5.0); ALT (GPT) 13 U/L (10-53); AST (GOT) 18 U/L (15-37); BICARBONATE 27.7 MEQ/L (21.0-32.0); BLOOD UREA NITROGEN 16 MG/DL (7-18); CALCIUM 8.5 MG/DL (8.5-10.1); CHLORIDE 96 MEQ/L (98-107); CREATININE 1.08 MG/DL (0.50-1.00); GLOMERULAR FILTRATION RATE 51 ML/MIN (>89); GLUCOSE,RANDOM 228 MG/DL (74-106); SODIUM (NA) 140 MEQ/L (136-145)
[2018-01-03 21:22] LABS: CHOLESTEROL/ HDL RATIO 6.6 RATIO; HDL CHOLESTEROL 40.6 MG/DL (40.0-60.0); INDIRECT BILIRUBIN 0.8 MG/DL (0.0-0.8); TOTAL PROTEIN 6.5 GM/DL (6.4-8.2)
[2018-01-03 21:24] LABS: ALKALINE PHOSPHATASE 96 U/L (45-117); TOTAL PROTEIN 6.4 GM/DL (6.4-8.2)
[2018-01-03] MEDS ORDERED: POTASSIUM CHLORIDE 10 MEQ CONTROLLED RELEASE TAB PO ONE (22:00)
[2018-01-03] MEDS: POTASSIUM CHLOR 10 MEQ PREMIX 100 ML IV SCH (22:18)
[2018-01-04] VITALS (9 sets, daily range): BP systolic 140–219; BP diastolic 68–95; PULSE 76–90; RESP 16–28; TEMP 97.9–98.6; O2SAT 95–98
[2018-01-04] MEDS: RESP: ALBUTEROL 2.5 MG/3 ML NEB (SCH) INH ×4 (03:38→20:03)
[2018-01-04] MEDS: POTASSIUM CHLOR 10 MEQ PREMIX 100 ML IV SCH ×2 (05:22→11:00)
[2018-01-04] MEDS: SODIUM CHLOR 0.9% 1000 ML INJ 1,000 ML IV SCH ×2 (05:22→23:22)
[2018-01-04 07:05] LABS: AUTOMATED NEUTROPHIL # 5.8 TH/MM3 (1.8-7.7); BASOPHIL # 0.1 TH/MM3 (0-0.2); BASOPHIL % 0.6 % (0.0-2.0); EOSINOPHIL # 0.2 TH/MM3 (0-0.4); EOSINOPHIL % 2.6 % (0.0-4.0); HEMATOCRIT 39.7 % (35.0-46.0); HEMOGLOBIN 13.4 GM/DL (11.6-15.3); LYMPH % 16.5 % (9.0-44.0); LYMPHOCYTE # 1.3 TH/MM3 (1.0-4.8); MEAN CORPUSCULAR HEMOGLOBIN 28.6 PG (27.0-34.0); MEAN CORPUSCULAR HGB CONC 33.7 % (32.0-36.0); MEAN PLATELET VOLUME 8.7 FL (7.0-11.0); MONO % 7.2 % (0.0-8.0); MONOCYTE # 0.6 TH/MM3 (0-0.9); NEUT % 73.1 % (16.0-70.0); PLATELET COUNT 199 TH/MM3 (150-450); RED BLOOD COUNT 4.67 MIL/MM3 (4.00-5.30); RED CELL DISTRIBUTION WIDTH 14.1 % (11.6-17.2); WHITE BLOOD COUNT 7.9 TH/MM3 (4.0-11.0)
[2018-01-04 07:36] LABS: BICARBONATE 31.9 MEQ/L (21.0-32.0); CALCIUM 8.8 MG/DL (8.5-10.1); CREATININE 1.16 MG/DL (0.50-1.00); MAGNESIUM 1.9 MG/DL (1.5-2.5); PHOSPHORUS 3.7 MG/DL (2.5-4.9)
[2018-01-04] MEDS: SODIUM CHLORIDE 0.9% FLUSH 10 ML FLUSH IV FLUSH SCH ×2 (09:00→20:18)
[2018-01-04] MEDS ORDERED: GADODIAMIDE PF 287 MG/ML 20 ML VIAL (for RAD MRI) IVCONTRAST ONE (09:27)
[2018-01-04] MEDS: DOCUSATE SODIUM 50 MG/SENNA 8.6 MG TAB PO SCH ×2 (09:44→20:17)
[2018-01-04] MEDS: FAMOTIDINE 20 MG/2 ML VIAL IV PUSH SCH ×2 (09:44→20:18)
[2018-01-04] MEDS: INSULIN ASPART SUPPLEMENTAL SCALE SQ SCH ×4 (09:44→23:30)
[2018-01-04] MEDS: FLUCONAZOLE 100 MG TAB PO SCH (09:45)
[2018-01-04] MEDS ORDERED: INFLUENZA VIRUS VACCINE (QUADRIVALENT) 0.5 ML SYR IM ONE (10:00)
--- NOTE | 2018-01-04 10:01 | RADRPT ---
EXAM DATE: 01/04/2018 9:13 AM EDT AGE/SEX: 67 years / Female INDICATIONS: Aphasia. CVA. Right upper extremity weakness. CLINICAL DATA: This is the patient's subsequent encounter. Patient reports that signs and symptoms h ave been present for 2 days and indicates a pain score of 0/10. MEDICAL/SURGICAL HISTORY: Diabetes. Hypertension. . Cataracts. Hip replacement. COMPARISON: [facility] [place], 01/03/2018. . TECHNIQUE: Multiplanar, multisequence examination of the brain was performed without and with 18 ml O mniscan (gadodiamide) contrast as a single exam dose. FINDINGS: There are several small areas of focally restricted diffusion in the frontal regions, most conspicuou sly in the mid convexity right parafalcine cortex and subcortical white matter with smaller areas in the left parafalcine cortex and bilaterally in the frontal periventricular white matter. There is a small focus of spontaneous increased T1 signal and susceptibility along the anterior media l left tentorium adjacent to the superior vermis which is presumably a small focus of hemorrhage. Elsewhere, scattered punctate areas of white matter T2 prolongation are likely benign microvascular i schemic in etiology. There is no evidence of brain mass. Ventricles are stable and within normal limits. Extracranial stru ctures are benign in intact. CONCLUSION: 1. Tiny patchy strokes in the frontal regions. 2. Tiny focus of extra-axial hemorrhage along the tentorial leaf on the left. Electronically signed by: Kamari García MD 01/04/2018 10:00 AM EDT
[2018-01-04 14:20] LABS: HEMOGLOBIN A1C 10.4 % (4.3-6.0)
--- NOTE | 2018-01-04 15:56 | HHI.PR ---
Subjective Remarks The room patient very pleasant sitting on the chair with her friends Resting comfortably in bed No event overnight Denied chest and or short of breath No fever or chills Objective Vitals Vital Signs Date Time Temp Pulse Resp B/P (MAP) Pulse Ox O2 Delivery O2 Flow Rate FiO2 01/04/18 15:00 83 01/04/18 13:57 96 01/04/18 12:00 98.4 76 18 140/95 (110) 96 01/04/18 08:00 98.6 80 16 219/82 (127) 98 01/04/18 07:00 96 Room Air 01/04/18 07:00 82 01/04/18 04:00 98.4 84 16 151/68 (95) 01/04/18 00:00 86 01/04/18 00:00 98.2 86 16 184/77 (112) 01/03/18 20:37 97 21 01/03/18 20:00 98 Room Air 01/03/18 20:00 98.4 82 14 169/75 (106) 98 01/03/18 20:00 82 01/03/18 18:00 79 01/03/18 16:00 84 01/03/18 16:00 98.3 77 9 189/89 (122) 99 I/O 01/03/18 01/03/18 01/03/18 01/04/18 01/04/18 01/04/18 07:00 15:00 23:00 07:00 15:00 23:00 Intake Total 611 ml 500 ml 240 ml 1240 ml Output Total 800 ml 500 ml Balance 611 ml 500 ml -560 ml 740 ml Intake Oral 240 ml 240 ml IV Total 611 ml 500 ml 1000 ml Output Urine Total 800 ml 500 ml # Voids 0 # Bowel Movements 0 1 1 Result Diagram: 01/04/18 0546 01/04/18 0546 Objective Remarks GENERAL: This is a well-nourished, well-developed patient, in no apparent distress. CARDIOVASCULAR: RRR, no gallops, or rubs. RESPIRATORY: Fair air entry bilaterally. No W, R, or R GASTROINTESTINAL: Abdomen soft, non-tender, nondistended. Positive bowel sounds MUSCULOSKELETAL: Extremities without clubbing, cyanosis, or edema. Pedal pulses appreciated NEUROLOGICAL: Awake and alert. Cranial nerves II through XII intact, motor and sensory strength totally intact, moves all extremity. Normal speech.no focal neurological deficit A/P Problem List: (1) Ischemic stroke ICD Code: I63.9 - Cerebral infarction, unspecified Status: Acute Assessment and Plan Acute ischemic stroke Wernicke's aphasia>> resolved Received TPA 12/27 started 17:39. Hold antiplatelets or anticoagulant therapy for 24 hours post TPA. Follow-up CT brain in 24 hours. Neurochecks and blood pressure management per TPA protocol CTA brain and carotids were normal. Follow-up lipids studies and echo. Continue telemetry monitoring. Start Lipitor 40 mg nightly Hypertension Hyperlipidemia Diabetes mellitus with A1c of 10.4 Status post Cardene drip, Follow-up lipid studies. Start Lipitor 40 mg nightly Accu-Chek with insulin sliding scale, consider adding basal insulin Hypokalemia Renal insufficiency, ?CKD stage III (baseline creatinine unknown) Monitor intake and output. Monitor electrolytes and replace as indicated per ICU electrolyte replacement protocol 01/04: Patient doing much better now, aphasia resolved, discussed with Dr. Lewis he agreed on repeating CT scan of the head tomorrow, he wants MRI of the head in 2 weeks after discharge, we can start blood pressure control in a.m. Sydni Portillo MD Jan 04, 2018 15:56
--- NOTE | 2018-01-04 15:58 | HHI.PR ---
Review/Management Diagnosis Stroke alert with aphasia, s/p iv TPA now with resolution of neurologic sx. small bifrontal strokes on MRI and small right tentorial hemorrhage Plan Start Aspirin 81 mg daily continue to monitor telemetry to r/o afib especially with the bilateral nature of cva on MRI which suggests possible embolic source. If inpatient cardiac telemetry is NSR, pt may benefit from loop recorder as outpatient. Also check labs to r/o hypercoagulable state. recheck MRI brain in 1-2 weeks to follow up on the small tentorial hemorrhage repeat CT tomorrow to follow up the small hemorrhage. Diagnosis/Plan: Subjective Subjective Comments No acute events reported Active Medications Current Medications Medications (Trade) Dose Ordered Sig/Radha Route Start Time Stop Time Status Last Admin (D50w (Vial) Inj) 50 ml UNSCH PRN IV PUSH 01/02/18 21:15 01/03/18 04:02 (Glucagon Inj) 1 mg UNSCH PRN OTHER 01/02/18 21:15 Nicardipine HCl 25 mg/Sodium Chloride 260 ml @ 52 mls/hr TITRATE PRN IV 01/02/18 22:00 01/02/18 22:47 Potassium Chloride 100 ml @ 50 mls/hr Q2H PRN IV 01/02/18 22:00 Potassium Chloride 100 ml @ 50 mls/hr Q2H PRN IV 01/02/18 22:00 (K-Lyte Cl Eff) 50 meq UNSCH PRN PO 01/02/18 22:00 Potassium Chloride 100 ml @ 25 mls/hr UNSCH PRN IV 01/02/18 22:00 Potassium Chloride 100 ml @ 50 mls/hr Q2H PRN IV 01/02/18 22:00 Magnesium Sulfate 4 gm/Sodium Chloride 100 ml @ 50 mls/hr UNSCH PRN IV 01/02/18 22:00 (Mag-Ox) 800 mg UNSCH PRN PO 01/02/18 22:00 Magnesium Sulfate 2 gm/Sodium Chloride 100 ml @ 50 mls/hr UNSCH PRN IV 01/02/18 22:00 (K-Phos) 2,000 mg Q4H PRN PO 01/02/18 22:00 Sodium Phosphate 30 mmol/Sodium Chloride 250 ml @ 42 mls/hr UNSCH PRN IV 01/02/18 22:00 (K-Phos) 2,000 mg UNSCH PRN PO/TUBE 01/02/18 22:00 Potassium Phosphate 30 mmol/ Sodium Chloride 260 ml @ 42 mls/hr UNSCH PRN IV 01/02/18 22:00 Sodium Chloride 1,000 ml @ 60 mls/hr [id number] IV 01/02/18 21:57 01/04/18 05:22 (NS Flush) 2 ml UNSCH PRN IV FLUSH 01/02/18 22:00 (NS Flush) 2 ml BID IV FLUSH 01/03/18 09:00 01/03/18 20:19 (Pepcid Inj) 20 mg Q12HR IV PUSH 01/03/18 09:00 01/04/18 09:44 (Albuterol Neb) 2.5 mg Q6HR NEB INH 01/02/18 22:00 01/03/18 20:38 [place] [place] 1 [id number] XX 01/02/18 22:00 01/02/18 22:00 (Chlorhexidine 2% Cloth) 3 pack Taper DAILY@04 TOP 01/03/18 04:00 12/30/18 03:59 01/03/18 22:00 (Chlorhexidine 2% Cloth) 3 pack UNSCH PRN TOP 01/02/18 22:00 (Shea-Colace) 1 tab BID PO 01/03/18 09:00 01/04/18 09:44 (Milk Of Magnesia Liq) 30 ml Q12H PRN PO 01/02/18 22:00 (Senokot) 17.2 mg Q12H PRN PO 01/02/18 22:00 (Dulcolax Supp) 10 mg DAILY PRN RECTAL 01/02/18 22:00 (Lactulose Liq) 30 ml DAILY PRN PO 01/02/18 22:00 (Lipitor) 40 mg HS PO 01/03/18 21:00 01/03/18 20:18 (Diflucan) 100 mg DAILY PO 01/03/18 15:00 01/07/18 09:01 01/04/18 09:45 (NovoLOG SUPPLEMENTAL SCALE) 1 Q6HR SQ 01/04/18 12:00 01/04/18 12:00 Allergies Allergies Coded Allergies Unable to Assess (Verified Allergy, Unknown, 01/02/18) Exam I&O / VS Vital Signs Date Time Temp Pulse Resp B/P (MAP) Pulse Ox O2 Delivery O2 Flow Rate FiO2 01/04/18 15:00 83 01/04/18 13:57 96 01/04/18 12:00 98.4 76 18 140/95 (110) 96 01/04/18 08:00 98.6 80 16 219/82 (127) 98 01/04/18 07:00 96 Room Air 01/04/18 07:00 82 01/04/18 04:00 98.4 84 16 151/68 (95) 01/04/18 00:00 86 01/04/18 00:00 98.2 86 16 184/77 (112) 01/03/18 20:37 97 21 01/03/18 20:00 98 Room Air 01/03/18 20:00 98.4 82 14 169/75 (106) 98 01/03/18 20:00 82 01/03/18 18:00 79 01/03/18 16:00 84 01/03/18 16:00 98.3 77 9 189/89 (122) 99 Exam Comments alert, oriented times 3. Speech is normal CN--pupils 2 mm symmetric and reactive. EOM intact. No facial droop MOTOR-- 5/5 all major muscle groups BUE and BLE. Objective Radiology Results MRI brain shows areas of abnormal diffusion weighted images in bilateral frontal lobe R>L. Small amount of hemorrhage is seen along right tentorium Micro and Labs Laboratory Tests Test 01/03/18 19:45 01/04/18 05:46 01/04/18 15:03 Blood Urea Nitrogen 16 15 Creatinine 1.08 1.16 Random Glucose 228 263 Total Protein 6.4 Albumin 3.1 Calcium Level 8.5 8.8 Magnesium Level 2.0 1.9 Alkaline Phosphatase 96 Aspartate Amino Transf (AST/SGOT) 18 Alanine Aminotransferase (ALT/SGPT) 13 Total Bilirubin 1.0 Sodium Level 140 139 Potassium Level 2.7 2.9 Chloride Level 96 98 Carbon Dioxide Level 27.7 31.9 Anion Gap 16 9 Estimat Glomerular Filtration Rate 51 47 Direct Bilirubin 0.2 Indirect Bilirubin 0.8 Triglycerides Level 166 Cholesterol Level 268 LDL Cholesterol 194 HDL Cholesterol 40.6 Cholesterol/HDL Ratio 6.60 White Blood Count 7.9 Red Blood Count 4.67 Hemoglobin 13.4 Hematocrit 39.7 Mean Corpuscular Volume 85.0 Mean Corpuscular Hemoglobin 28.6 Mean Corpuscular Hemoglobin Concent 33.7 Red Cell Distribution Width 14.1 Platelet Count 199 Mean Platelet Volume 8.7 Neutrophils (%) (Auto) 73.1 Lymphocytes (%) (Auto) 16.5 Monocytes (%) (Auto) 7.2 Eosinophils (%) (Auto) 2.6 Basophils (%) (Auto) 0.6 Neutrophils # (Auto) 5.8 Lymphocytes # (Auto) 1.3 Monocytes # (Auto) 0.6 Eosinophils # (Auto) 0.2 Basophils # (Auto) 0.1 CBC Comment DIFF FINAL Differential Comment Phosphorus Level 3.7 Diagnostic Tests ECHO--normal with no evidence of embolic source. Chinmay Lewis MD PhD Jan 04, 2018 15:58
[2018-01-04] MEDS ORDERED: ASPIRIN EC 325 MG TABEC PO SCH (16:00)
[2018-01-04] MEDS: ASPIRIN EC 81 MG TABEC PO SCH (16:53)
[2018-01-04] MEDS: ATORVASTATIN 40 MG TAB PO SCH (20:18)
[2018-01-05] VITALS: BP 141/73; PULSE 83; RESP 18; TEMP 97.9; O2SAT 95
[2018-01-05] MEDS: RESP: ALBUTEROL 2.5 MG/3 ML NEB (SCH) INH ×3 (03:15→16:00)
[2018-01-05 04:00] VITALS: BP 128/87; PULSE 85; RESP 18; TEMP 97.7; O2SAT 96
[2018-01-05] MEDS: CHLORHEXIDINE GLUCONATE 2 % 1 PACK (2 CLOTHS) TOP SCH (04:00)
[2018-01-05] MEDS: INSULIN ASPART SUPPLEMENTAL SCALE SQ SCH ×2 (05:13→13:28)
[2018-01-05] MEDS: ASPIRIN EC 81 MG TABEC PO SCH (08:51)
[2018-01-05] MEDS: FAMOTIDINE 20 MG/2 ML VIAL IV PUSH SCH (08:51)
[2018-01-05] MEDS: FLUCONAZOLE 100 MG TAB PO SCH (08:52)
[2018-01-05] MEDS: DOCUSATE SODIUM 50 MG/SENNA 8.6 MG TAB PO SCH (08:52)
[2018-01-05] MEDS: SODIUM CHLORIDE 0.9% FLUSH 10 ML FLUSH IV FLUSH SCH (09:00)
[2018-01-05 09:04] VITALS: BP 201/84; PULSE 81; RESP 20; TEMP 98; O2SAT 96
--- NOTE | 2018-01-05 10:18 | RADRPT ---
EXAM DATE: 01/05/2018 9:55 AM EDT AGE/SEX: 67 years / Female INDICATIONS: Follow up CVA. CLINICAL DATA: This is the patient's subsequent encounter. Patient reports that signs and symptoms h ave been present for 3 days and indicates a pain score of 0/10. MEDICAL/SURGICAL HISTORY: Hypertension. Diabetes. None. RADIATION DOSE: 66.34 CTDI (mGy) COMPARISON: [facility] – [place], MRI BRAIN W & W/O CONTRAST, 01/04/2018. . TECHNIQUE: CT of the head without contrast. Using automated exposure control and adjustment of the mA and/or kV according to patient size, radiation dose was kept as low as reasonably achievable to ob tain optimal diagnostic quality images. FINDINGS: Cerebrum: The ventricles are normal for age. No evidence of midline shift, mass lesion, hemorrhage or acute infarction. No extraaxial fluid collections are seen. Small area of ischemia seen by MRI is not visualized by CT. Posterior Fossa: The cerebellum and brainstem are intact. The 4th ventricle is midline. The cerebe llopontine angle is unremarkable. Extracranial: The visualized portion of the orbits is intact. Skull: The calvaria is intact. No evidence of skull fracture. CONCLUSION: 1. Exam remains negative in spite of abnormal MRI. 2. There is no hemorrhage. Electronically signed by: Fuentes Ochoa MD 01/05/2018 10:17 AM EDT
[2018-01-05] MEDS ORDERED: ATOR40TA16 PO (10:52)
[2018-01-05] MEDS ORDERED: PROT40TA PO (10:52)
[2018-01-05] MEDS ORDERED: ECASA81 PO (10:52)
[2018-01-05] MEDS ORDERED: DIFL100T PO (10:52)
[2018-01-05] MEDS ORDERED: AMLO5 PO (10:55)
[2018-01-05] MEDS ORDERED: LEVEMIR SQ (10:58)
[2018-01-05] MEDS ORDERED: amLODIPine BESYLATE 5 MG TAB PO SCH (11:00)
[2018-01-05] MEDS ORDERED: INSULIN DETEMIR 100 UNITS/ML VIAL SQ SCH (11:00)
[2018-01-05] MEDS ORDERED: NOVOLOGSS SQ (11:01)
[2018-01-05] MEDS ORDERED: ACCUMIS25 (11:01)
[2018-01-05] MEDS ORDERED: BLOO1KIT65 (11:01)
[2018-01-05] MEDS ORDERED: ACCUTES19 (11:01)
[2018-01-05 11:43] VITALS: PULSE 80
[2018-01-05 12:22] VITALS: BP 183/81; PULSE 81; RESP 20; TEMP 97.7; O2SAT 99
--- NOTE | 2018-01-05 17:06 | HHI.PR ---
Subjective Remarks no new c/o. She feels her speech is normal NEURO EXAM-- Alert and oriented times three Speech is normal, CN intact <MOTOR--5/5 BUE and BLE Objective Vital Signs Date Time Temp Pulse Resp B/P (MAP) Pulse Ox O2 Delivery O2 Flow Rate FiO2 01/05/18 14:17 99 Room Air 01/05/18 12:22 97.7 81 20 183/81 (115) 99 01/05/18 11:43 80 01/05/18 09:04 98.0 81 20 201/84 (123) 96 01/05/18 04:00 97.7 85 18 128/87 (101) 96 01/05/18 00:00 97.9 83 18 141/73 (95) 95 01/04/18 23:20 Room Air 01/04/18 22:20 98.5 88 18 184/78 (113) 98 01/04/18 20:00 96 Room Air I/O 01/04/18 01/04/18 01/04/18 01/05/18 01/05/18 01/05/18 07:00 15:00 23:00 07:00 15:00 23:00 Intake Total 1240 ml 480 ml Output Total 500 ml 300 ml Balance 740 ml 180 ml Intake Oral 240 ml 480 ml IV Total 1000 ml Output Urine Total 500 ml 300 ml # Voids 3 3 1 # Bowel Movements 1 2 Result Diagram: 01/04/18 0546 01/04/[address] brain normal A/P Assessment and Plan cva--sx resolved after iv tpa small tentorial hemorrhage on MRI--not seen on CT Patient is stable neurologically for discharge on asa and statin. Please schedule follow up with me in office in 2 weeks Sydni Portillo MD Jan 05, 2018 17:05
[2018-01-05 17:38] VITALS: BP 160/90; PULSE 99; RESP 20; TEMP 97.8; O2SAT 99
--- NOTE | 2018-01-05 21:20 | HHI.DS ---
Discharge Summary Admission Date Jan 02, 2018 at 18:29 Discharge Date: Jan 05, 2018 Admitting Diagnosis ischemic stroke (1) Ischemic stroke ICD Code: I63.9 - Cerebral infarction, unspecified Status: Acute Procedures TPA infusion Brief History - From Admission 67-year-old female with PMH of HTN, DM, HLD, gout, obesity who reportedly had acute onset of Wernicke's aphasia and confusion at 3 PM 01/02/18. She arrived at [facility] Emergency Department. CT brain was negative. CTA brain and carotid was also unremarkable. She was evaluated by Dr. Lewis with neurology and TPA was recommended and administered at 17:39. She was started on nicardipine drip; BP was 196/92 after administration of TPA. She was given Ativan 1 mg IV in the emergency department due to agitation. Reportedly patient was discharged from [facility] yesterday after admission for hyperglycemia. She also had been treated for soft tissue infection and had been on antibiotic therapy. Patient is unable to confirm this medical history; as aphasia persists. Apparently her best friend was able to provide some of this history to the emergency department physician and reportedly this friend is on the way to [facility] now. CBC/BMP: 01/04/18 0546 01/04/18 1503 Significant Findings Laboratory Tests Test 01/03/18 00:20 01/03/18 19:45 01/04/18 05:46 01/04/18 15:03 Creatinine 1.08 MG/DL (0.50-1.00) 1.16 MG/DL (0.50-1.00) Random Glucose 228 MG/DL (74-106) 263 MG/DL (74-106) Albumin 3.1 GM/DL (3.4-5.0) Potassium Level 2.7 MEQ/L (3.5-5.1) 2.9 MEQ/L (3.5-5.1) Chloride Level 96 MEQ/L (98-107) Anion Gap 16 MEQ/L (5-15) Estimat Glomerular Filtration Rate 51 ML/MIN (>89) 47 ML/MIN (>89) Triglycerides Level 166 MG/DL (42-150) Cholesterol Level 268 MG/DL (120-200) LDL Cholesterol 194 MG/DL (0-99) Neutrophils (%) (Auto) 73.1 % (16.0-70.0) Hemoglobin A1c 10.4 % (4.3-6.0) Test 01/04/18 17:13 PE at Discharge GENERAL: This is a well-nourished, well-developed patient, in no apparent distress. CARDIOVASCULAR: RRR, no gallops, or rubs. RESPIRATORY: Fair air entry bilaterally. No W, R, or R GASTROINTESTINAL: Abdomen soft, non-tender, nondistended. Positive bowel sounds MUSCULOSKELETAL: Extremities without clubbing, cyanosis, or edema. Pedal pulses appreciated NEUROLOGICAL: Awake and alert. Cranial nerves II through XII intact, motor and sensory strength totally intact, moves all extremity. Normal speech.no focal neurological deficit Hospital Course 67 years old female obese admitted with acute ischemic stroke with aphasia she was received TPA under the care of Dr. Lewis the neurologist, serial imaging CT and MRI has been done CTA of the brain, she had started on statin and Norvasc, she had renal insufficiency which mostly hypertensive and diabetic nephropathy , on day of discharge discussed with neurologist he recommended repeating CT on the of discharge which was negative, he wants MRI in 2 weeks, patient also was found to be a diabetic with A1c of 10.4, this has been extensively addressed with the patient in the presence of the clinical staff educator she understands she will be on insulin and follow-up closely with her primary care physician. [id number] encounter performed with the patient on discharge day, as well as physical exam, summary of hospitalization course and postdischarge plan has been D/W the patient. D/W nurse D/W patient case coordinator. Discharge medications reviewed and printed and signed, post discharge follow up visit with PCP and other specialist as well as Brief hospital course and discharge summary has been placed. Pt Condition on Discharge: Good Discharge Disposition: Discharge Home Discharge Time: > 30 minutes Discharge Instructions DIET: Follow Instructions for: Heart Healthy Diet, Diabetic Diet Speech Therapy-Diet Recommends: Regular Activities you can perform: Weight Bearing as Gaby Follow up Referrals: Neurology with Chinmay Lewis MD PhD follow up on holter monitor New Medications: Accu-Chek Fastclix Lancet (Accu-Chek Fastclix Lancet) 1 Mis Mis EA .XX DIRECTED for Blood Sugar Management, #1 0 Refills Accu-Chek Strips Nicky Plus (Accu-Chek Strips Nicky Plus) 1 Tanika Tanika STRIPS .XX DIRECTED for Blood Sugar Management, #1 0 Refills Amlodipine (Norvasc) 5 Mg Tab 5 MG PO DAILY for Blood Pressure Management, #30 TAB 0 Refills Blood Glucose Monitoring Suppl (Accu-Chek Nicky Connect W/Device) 1 Kit Kit KIT .XX DIRECTED for Blood Sugar Management, #1 0 Refills Insulin Detemir Inj (Levemir Inj) 1,000 unit/ 10 ML Vial 5 UNITS SQ BID for Blood Sugar Management for 30 Days, VIAL 0 Refills Do not mix with any other Insulin. Pantoprazole (Protonix) 40 Mg Tab 40 MG PO DAILY for Reflux, #30 TAB [address] (Aspirin DR) 81 Mg Tabdr 81 MG PO DAILY for cva, #30 TAB Atorvastatin (Atorvastatin) 40 Mg Tab 40 MG PO HS for cva, #30 TAB Fluconazole (Diflucan) 100 Mg Tab 100 MG PO DAILY for infx, #2 TAB Insulin Aspart Inj (Novolog Inj) 100 Unit/Ml Inj 1 UNIT SQ Q6HR for dm for 30 Days, INJECTION Sydni Portillo MD Jan 05, 2018 21:20
== END 2018-01-05 18:06 | disposition home or self-care (01) | DRG 63 ==
LOC: PHED 16:25 → PHEDA 18:29 → N03B 20:00 → N03A 01-04 07:53 → N05B 01-04 22:00
PROVIDERS: ADMIT Hospitalist; ATTEND Hospitalist
DX: I63.9 Cerebral infarction, unspecified (principal); F80.2 Mixed receptive-expressive language disorder; E11.21 Type 2 diabetes mellitus with diabetic nephropathy; I12.9 Hypertensive chronic kidney disease with stage 1 through stage 4 chronic kidney disease, or unspecified chronic kidney disease; N18.3 Chronic kidney disease, stage 3 (moderate); R29.712 NIHSS score 12; E66.9 Obesity, unspecified; E78.5 Hyperlipidemia, unspecified; E87.6 Hypokalemia; M10.9 Gout, unspecified
CPT/HCPCS: 70450; 70496; 70498; 70553; 71045; 80048; 80053; 80061; 80076; 81240; 81241; 82550; 82948; 83036; 83735; 84100; 84132; 84484; 84702; 85025; 85303; 85306; 85384; 85610; 85613; 85730; 86147; 86850; 86900; 86901; 87641; 93005; 93306; 94640; 94664; 96365; 96368; 96375; A9579; J1815; J2060; J2997; J3480; J7030; J7050; J7613; Q9967